=== PATIENT | male | born 1990 | race African-American/Black ===

== ENCOUNTER 2018-06-20 00:07 | Emergency (ER) | payer OTHER ==
[~2018-06-20] VITALS: Ht 182.9 cm; Wt 167.8 kg
[2018-06-20 00:11] VITALS: BP 188/100
--- NOTE | 2018-06-20 00:20 | NUR ---
[id number] FROM HOME C/P CHEST PRESSURE X 2 DAYS NONRADIATING. DENIES SOB. SKIN WNL. RESP EVEN AND UNLABORED. NO S/S OF ACUTE DISTRESS NOTED. PT IS AAOX4. PT PLACED ON R PROGRAMMER AND POX. PT SAFETY IN PLACE. BEDSIDE FOR EVAL
[2018-06-20] MEDS ORDERED: LORAZEPAM 1 MG TABLET ONE (00:40)
[2018-06-20] MEDS ORDERED: LORAZEPAM 0.5 MG TABLET PO ONE (01:00)
--- NOTE | 2018-06-20 01:49 | NUR ---
Patient discharged to home in stable condition. Written and verbal after care instructions given. Patient verbalizes understanding of instruction.
== END 2018-06-20 01:50 | disposition home or self-care (01) ==
LOC: ER 00:12
DX: F41.9 Anxiety disorder, unspecified (principal); R07.89 Other chest pain; G47.30 Sleep apnea, unspecified; F41.0 Panic disorder [episodic paroxysmal anxiety]; I10 Essential (primary) hypertension; R94.31 Abnormal electrocardiogram [ECG] [EKG]
CPT/HCPCS: 93005; 99284; A4606